=== PATIENT | male | born 1980 | race Caucasian/White ===

== ENCOUNTER 2016-09-21 09:16 | Emergency (ER) | payer OTHER ==
[~2016-09-21] VITALS: Ht 182.9 cm; Wt 81.0 kg
[2016-09-21 09:17] VITALS: BP 182/132; PULSE 97; RESP 20; TEMP 98.4; O2SAT 96
[2016-09-21 09:28] VITALS: BP 175/119
[2016-09-21] MEDS ORDERED: SYMB80AE INH (09:36)
[2016-09-21] MEDS ORDERED: VENTAER INH (09:36)
[2016-09-21] MEDS ORDERED: OMEP20CA2 (09:36)
--- NOTE | 2016-09-21 10:11 | RADRPT ---
EXAM DATE/TIME: 09/21/2016 10:11 [place] COMPARISON: No previous studies available for comparison. INDICATIONS : Posterior right elbow pain with no known injury. MEDICAL HISTORY : None. SURGICAL HISTORY : None. ENCOUNTER: Initial ACUITY: 1 day PAIN SCORE: 10/10 LOCATION: Right Elbow FINDINGS: Multiple view examination of the right elbow demonstrates no soft tissue swelling, joint effusion, or fracture. The osseous structures are in normal alignment. Bony mineralization is normal. CONCLUSION: 1. Negative examination of the elbow. Elmer Vuong MD on September 21, 2016 at 10:07 Board Certified Radiologist. This report was verified electronically.
--- NOTE | 2016-09-21 10:56 | PD ---
HPI Chief Complaint: Injury Time Seen by Provider: 09:40 Travel History International Travel<30 days: No Contact w/Intl Traveler<30days: No Traveled to known affect area: No History of Present Illness HPI 36-year-old male came to the emergency room with history of right elbow pain. Patient woke up with severe elbow pain. At first he thought he had slept wrong. He took 800 mg of ibuprofen at 7 AM. Admit the throbbing a little less but it was still very tender to touch. No history of fever or chills. No history of trauma. Patient is not quite sure what he could've done to cause this pain. He has never had this in the past. He is otherwise a healthy person. Patient was hypertensive in triage. FORMERLY [facility] Past Medical History Narrative Medical List of his past medical, surgical, social and family history is reviewed from the nursing note. Cardiovascular Problems: Yes GERD: Yes Past Surgical History Other Surgery: Yes (WISDOM TEETH REMOVAL ) Social History Alcohol Use: No Tobacco Use: No Substance Use: No Allergies-Medications (Allergen,Severity, Reaction): Coded Allergies: Penicillin (Verified Allergy, Unknown, Hives, 09/21/16) Comments List of his allergies reviewed from the nursing note. Reported Meds & Prescriptions Reported Meds & Active Scripts Active Lopressor (Metoprolol Tartrate) 50 Mg Tab 25 Mg PO BID Colace (Docusate Sodium) 100 Mg Cap 100 Mg PO BID 5 Days Hydrocodone-Acetaminophen 5-325 mg Tab 1 Tab PO Q6H PRN Clindamycin (Clindamycin HCl) 300 Mg Cap 300 Mg PO TID Reported Omeprazole 20 Mg Cap Ventolin Hfa 18 GM Inh (Albuterol Sulfate) 90 Mcg/Act Aer 1 Puff INH Q4H PRN Symbicort Inh (Budesonide/Formoterol Fumarate) 80-4.5 Mcg/Act Aero 2 Puff INH Q12HR Narrative Medication List of his home medications reviewed from the nursing note. Review of Systems Except as stated in HPI: all other systems reviewed are Neg Physical Exam Narrative GENERAL: Awake, alert, mild distress SKIN: Warm and dry. Erythema, warmth and tender to touch skin on the right olecranon process. It slightly swollen. HEAD: Atraumatic. Normocephalic. EYES: Pupils equal and round. No scleral icterus. No injection or drainage. ENT: No nasal bleeding or discharge. Mucous membranes pink and moist. NECK: Trachea midline. No JVD. CARDIOVASCULAR: Regular rate and rhythm. RESPIRATORY: No accessory muscle use. Clear to auscultation. Breath sounds equal bilaterally. GASTROINTESTINAL: Abdomen soft, non-tender, nondistended. Hepatic and splenic margins not palpable. MUSCULOSKELETAL: Extremities without clubbing, cyanosis, or edema. No obvious deformities. NEUROLOGICAL: Awake and alert. No obvious cranial nerve deficits. Motor grossly within normal limits. Five out of 5 muscle strength in the arms and legs. Normal speech. PSYCHIATRIC: Appropriate mood and affect; insight and judgment normal. Data Data Last Documented VS Vital Signs Date Time Temp Pulse Resp B/P Pulse Ox O2 Delivery O2 Flow Rate FiO2 09/21/16 11:34 83 18 181/114 97 Room Air 09/21/16 09:17 98.4 Orders Elbow, Complete (4 Vws) (09/21/16 ) Acetamin-Hydrocod 325-5 Mg ([place] 5-325 (09/21/16 11:00) Clindamycin (Cleocin) (09/21/16 11:00) MDM Medical Decision Making Medical Screen Exam Complete: Yes Emergency Medical Condition: Yes Medical Record Reviewed: Yes Differential Diagnosis Olecranon bursitis, olecranon fracture Narrative Course 11:26 AM elbow x-ray was within normal limits. I decided to The olecranon bursa. Patient tolerated the procedure well. He has been given by mouth hydrocodone and a dose of clindamycin. The fluid was sent for culture. Patient will be discharged home on prescription for antibiotic and pain medication. 11:58 AM the repeat blood pressure was still high. I spoke with the patient and he said that he has known about his hypertension for almost 2 years now but he did not have insurance and it was never treated. He is planning to get his insurance and 2 more days and find a primary care. Having known this I have decided to start him on Lopressor 25 mg twice a day. I have urged him to find a primary care sooner and recheck the blood pressure. Procedures Procedure Narrative Joints/bursa aspiration: The right elbow joint over the olecranon process was cleaned with Betadine. Patient chose not to get local anesthetic. 18-gauge needle attached to a 10 cc syringe was injected over the patient with maximum fluctuance. Syringe was aspirated as a needle went in. Immediately about 2 mL' s of serous fluid was aspirated that got blood tinged was the end. The needle was taken out and pressure was applied to stop the bleeding. Fluid was sent for culture and Gram stain. The area was wrapped with Kerlix. Patient tolerated the procedure well. EKG Prior to Arrival: No Diagnosis Primary Impression: Olecranon bursitis Qualified Code: M70.21 - Olecranon bursitis of right elbow Additional Impression: Hypertension Qualified Code: I15.9 - Secondary hypertension Referrals: Primary Care Physician 3 days Additional Instructions: Please follow-up with your primary care in couple days. Return to the ER if the condition worsens or any other new concerns. Please have your primary care check your blood pressure as well since it was high when you were in the emergency room. It could've been due to anxiety and pain. But it does require repeat checks. Fill the prescription and take the medication as per the direction. Do not drive or operate heavy machinery while on the pain medication as they will make you groggy. Take ibuprofen in addition for added pain relief. Med/Other Pt SpecificInfo: Prescription(s) given Scripts Metoprolol Tartrate (Lopressor)50 Mg Tab25 Mg PO BID #60 TAB Ref 0 Prov:Ale Gomes MD 09/21/16 Docusate Sodium (Colace)100 Mg [id number] Mg PO BID 5 Days Ref 0 Prov:Ale Gomes MD 09/21/16 Hydrocodone-Acetaminophen 5-325 mg Tab1 Tab PO Q6H PRN (PAIN) #15 TAB Ref 0 Prov:Ale Gomes MD 09/21/16 Clindamycin 300 Mg [id number] Mg PO TID #30 CAP Ref 0 Prov:Ale Gomes MD 09/21/16 Disposition: 01 DISCHARGE HOME Condition: Stable Ale Gomes MD Sep 21, 2016 10:56 Ale Gomes MD Sep 21, 2016 10:56
[2016-09-21] MEDS ORDERED: ACETAMINOPHEN/HYDROcodone 325 MG/5 MG TAB PO ONE (11:00)
[2016-09-21] MEDS ORDERED: CLINDAMYCIN 150 MG CAP PO ONE (11:00)
[2016-09-21] MEDS ORDERED: COLA100C3 PO (11:31)
[2016-09-21] MEDS ORDERED: HYDR-3516 PO (11:31)
[2016-09-21] MEDS ORDERED: CLIN1CAP6 PO (11:31)
[2016-09-21 11:34] VITALS: BP 181/114; PULSE 83; RESP 18; O2SAT 97
[2016-09-21] MEDS ORDERED: METO-309 PO (11:57)
== END 2016-09-21 11:55 | disposition home or self-care (01) ==
LOC: NEPA 09:16
DX: M70.21 Olecranon bursitis, right elbow (principal); I15.9 Secondary hypertension, unspecified
CPT/HCPCS: 20605; 73080